=== PATIENT | female | born 2000 | race Caucasian/White ===

== ENCOUNTER 2019-07-03 23:43 | Emergency (ER) | payer SELFPAY ==
[~2019-07-03] VITALS: Ht 154.9 cm; Wt 52.2 kg
--- NOTE | 2019-07-04 | NUR ---
PT CAME TO ER BED 11 C/O COUGHING FOR 1x MONTH. PATIENT STATES THAT SHE HAS BEEN COUGHING WITH PHELGM. STATES SHE HAS CHEST PAIN FROM COUGHING. PT STATES SHE HAS A HISTORY OF BRONCHITIS. AAOX4. NO SOB. BREATHING EVENLY AND UNLABORED.
--- NOTE | 2019-07-04 | NUR ---
SEEN AND EVALUATED BY GILLIAN HEATON
--- NOTE | 2019-07-04 00:06 | NUR ---
RT CALLED FOR BREATHING TREATMENT
[2019-07-04] MEDS ORDERED: predniSONE 20 MG TABLET ONE (00:08)
[2019-07-04] MEDS ORDERED: IPRATROPIUM NEB FS 0.5 MG/2.5 ML AMPUL.NEB ONE (00:15)
[2019-07-04] MEDS ORDERED: ALBUTEROL FS 2.5 MG/3 ML VIAL.NEB ONE (00:15)
--- NOTE | 2019-07-04 00:25 | NUR ---
FLU SWAB SAMPLE TAKEN AND SENT TO LAB
[2019-07-04] MEDS ORDERED: predniSONE 20 MG TABLET PO ONE (00:30)
[2019-07-04] MEDS ORDERED: IPRATROPIUM NEB FS 0.5 MG/2.5 ML AMPUL.NEB NEB ONE (00:30)
[2019-07-04] MEDS ORDERED: ALBUTEROL FS 2.5 MG/3 ML VIAL.NEB NEB ONE (00:30)
[2019-07-04 01:31] LABS: BASOPHILS % (AUTO) 0.4 % (0.0-2.0); EOSINOPHILS % (AUTO) 0.2 % (0.0-6.0); HEMATOCRIT 42 % (33-45); HEMOGLOBIN 13.6 g/dL (11.5-14.8); LYMPHOCYTES # (AUTO) 1.4 /CMM (0.8-4.8); LYMPHOCYTES % (AUTO) 21.6 % (20.0-44.0); MEAN CORPUSCULAR HGB CONC 33 g/dl (31.0-36.0); MEAN CORPUSCULAR VOLUME 86 fL (82-100); MONOCYTES # (AUTO) 0.9 /CMM (0.1-1.30); MONOCYTES % (AUTO) 13.5 % (2.0-12.0); NEUTROPHILS # (AUTO) 4.2 /CMM (1.8-8.9); NEUTROPHILS % (AUTO) 64.3 % (43.0-81.0); PLATELET COUNT (AUTO) 193 /CMM (150-450); RED BLOOD CELL COUNT(AUTO) 4.82 MIL/uL (4.0-5.2); WHITE BLOOD COUNT (AUTO) 6.5 K/uL (4.3-11.0)
[2019-07-04 01:41] LABS: CALCIUM, SERUM 8.6 mg/dL (8.5-10.1); CREATININE 0.6 mg/dL (0.6-1.3); POTASSIUM 3.3 mmol/L (3.5-5.1)
[2019-07-04] MEDS ORDERED: ONDANSETRON HCL/PF 4 MG/2 ML VIAL IVP ONE (02:30)
[2019-07-04] MEDS ORDERED: IV NS 0.9% 1,000 ML BAG IV ONE (02:30)
[2019-07-04] MEDS ORDERED: ONDANSETRON HCL/PF 4 MG/2 ML VIAL ONE (02:37)
--- NOTE | 2019-07-04 02:49 | NUR ---
followed up with radiology for ultrasound.
--- NOTE | 2019-07-04 03:04 | NUR ---
US at bedside
--- NOTE | 2019-07-04 03:33 | NUR ---
IV removed. Catheter intact and site benign. Pressure and 4x4 applied to site. No bleeding noted. Patient discharged to home in stable condition. Written and verbal after care instructions given. Patient verbalizes understanding of instruction. Prescriptions given to patient and explained. Patient will follow-up with Primary MD SCHWARTZ regarding HCG quantitative. Will follow-up in 48hrs to [facility] regarding HCG quantitative.
[2019-07-04 03:34] VITALS: BP 117/66
== END 2019-07-04 03:36 | disposition home or self-care (01) ==
LOC: ER 23:46
DX: O99.511 Diseases of the respiratory system complicating pregnancy, first trimester (principal); R05 Cough; O99.341 Other mental disorders complicating pregnancy, first trimester; F41.9 Anxiety disorder, unspecified; F32.9 Major depressive disorder, single episode, unspecified; O99.331 Smoking (tobacco) complicating pregnancy, first trimester; O21.9 Vomiting of pregnancy, unspecified; Z3A.01 Less than 8 weeks gestation of pregnancy
CPT/HCPCS: 36415; 76805; 80048; 84702; 84703; 85025; 87804 ×2; 94644; 96361; 96374; 99285; J2405; J7030; J7512